=== PATIENT | male | born 2000 | race Caucasian/White ===

== ENCOUNTER 2019-05-06 11:19 | Emergency (ER) | payer SELFPAY ==
[2019-05-06] MEDS ORDERED: LIDOCAINE 2%/EPI MPF (SDV) 20 ML VIAL INJ (12:03)
[2019-05-06] MEDS: LIDOCAINE 1% (MDV) 10 ML INJ INJ (12:30)
== END 2019-05-06 12:50 | disposition home or self-care (01) ==
LOC: FTE 11:19
DX: S51.011A Laceration without foreign body of right elbow, initial encounter (principal); W27.2XXA Contact with scissors, initial encounter; Y92.9 Unspecified place or not applicable
CPT/HCPCS: 12001; 99282-25